=== PATIENT | female | born 1995 | race Two or more races ===

== ENCOUNTER 2019-04-08 19:25 | Emergency (ER) | payer MEDICAID, OTHER ==
[~2019-04-08] VITALS: Ht 152.4 cm; Wt 49.9 kg
[2019-04-08 19:35] VITALS: BP 110/65
== END 2019-04-08 23:19 | disposition home or self-care (01) ==
LOC: ER 19:25
DX: M62.838 Other muscle spasm (principal); M54.2 Cervicalgia; R07.81 Pleurodynia; R51 Headache; M25.512 Pain in left shoulder; M25.511 Pain in right shoulder; Z32.02 Encounter for pregnancy test, result negative; V49.49XA Driver injured in collision with other motor vehicles in traffic accident, initial encounter; Y93.89 Activity, other specified; Y92.89 Other specified places as the place of occurrence of the external cause; Y99.8 Other external cause status
CPT/HCPCS: 81025

== ENCOUNTER → 2019-06-22 | Emergency (ER) | payer SELFPAY ==
[~2019-06-22] VITALS: Ht 152.4 cm; Wt 47.6 kg
[2019-06-22 18:24] VITALS: BP 92/57
[2019-06-22 19:38] LABS: Urine Bacteria FEW /hpf (None Seen); Urine Blood 1+ /uL (Negative); Urine Mucus FEW (None Seen); Urine Specific Gravity 1.019 (1.001-1.035); Urine WBC 105 /hpf (0 - 5); Urine WBC Clumps PRESENT /hpf (None Seen)
== END | disposition left against medical advice (07) ==
LOC: ER 17:48
DX: R10.9 Unspecified abdominal pain (principal); Z53.21 Procedure and treatment not carried out due to patient leaving prior to being seen by health care provider
CPT/HCPCS: 81001; 81025

== ENCOUNTER 2025-04-01 10:03 | Emergency (ER) | payer MEDICAID ==
[~2025-04-01] VITALS: Ht 152.4 cm; Wt 57.0 kg
--- NOTE | 2025-04-01 10:41 | DVH ---
CLINICAL INFORMATION: Persistent cough. Shortness of breath. TECHNIQUE: Frontal and lateral chest radiographs were obtained. COMPARISON: None FINDINGS: Lungs: Bilateral perihilar interstitial opacities with mild perihilar peribronchial cuffing. No focal consolidation. Cardiac: Heart size is within normal limits. Pulmonary vasculature: Unremarkable Mediastinum/mindy: Within normal limits. Bones: No evidence of acute osseous abnormality. Other: Mild pectus excavatum deformity. IMPRESSION: Perihilar interstitial opacities with mild Perihilar peribronchial cuffing. Findings may be seen wit h viral infection / bronchiolitis in the appropriate clinical setting. No focal consolidation.
[2025-04-01 11:33] VITALS: BP 133/74; PULSE 112; RESP 24; TEMP 97.8; O2SAT 94
--- NOTE | 2025-04-01 11:58 | ED.PDOC ---
SOB-HPI HPI Comments A 29 year old female presents to the ED c/o cough onset 3 weeks with associated SOB. Patient states that she has been having a persistent cough for the past 3 weeks with no relief of symptoms. Patient mentions that she has been seen at urgent care twice before in the past week and was prescribed Azithromycin and Promethazine, which she states has not helped. Patient is able to speak in full, complete sentences. Denies fever, chest pain, abdominal pain, nausea, vomiting, diarrhea, headache, dizziness, vision changes, or numbness/tingling of extremities. No other symptoms or modifying factors reported at this time. Patient is alert and oriented x4 and has a stable gait. Chief Complaint: Flu like Time Seen by MD: 11:46 Primary Care Provider: 97.8 Reviewed notes: Nurses Notes, Medications, Allergies Information Source: Patient Mode of Arrival: Ambulatory Severity: Moderate Timing: Weeks Duration: Since onset Context: At Rest PE Risk Factors: None History of: None Prehospital treatment: None Associated Signs and Symptoms: Cough If cough with SOB: Non-Productive Past Medical History PAST MEDICAL HISTORY: Denies Surgical History: Denies all surgeries PEANUT VENDOR History: No Pertinent PEANUT VENDOR History Family History Family History: Unknown Social History Smoker: Non-Smoker Alcohol: Denies ETOH Use Drugs: Denies Drug Use Lives In: Home Constitutional: denies: chills, diaphoresis, fatigue, fever, malaise, sweats, weakness, others EENTM: denies: blurred vision, double vision, ear bleeding, ear discharge, ear drainage, ear pain, ear ringing, eye pain, eye redness, hearing loss, mouth pain, mouth swelling, nasal discharge, nose bleeding, nose congestion, nose pain, photophobia, tearing, throat pain, throat swelling, voice changes, others Respiratory: reports: cough, SOB at rest; denies: hemoptysis, orthopnea, shortness of breath, SOB with excertion, stridor, wheezing, others Cardiovascular: denies: chest pain, dizzy spells, diaphoresis, Dyspnea on exe rtion, edema, irregular heart beat, left arm pain, lightheadedness, palpitations, PND, syncope, others Gastrointestinal: denies: abdomen distended, abdominal pain, blood streaked bowels, constipated, diarrhea, dysphagia, difficulty swallowing, hematemesis, melena, nausea, poor appetite, poor fluid intake, rectal bleeding, rectal pain, vomiting, others Genitourinary: denies: abnormal vagina bleeding, burning, dyspareunia, dysuria, flank pain, frequency, hematuria, incontinence, pain, , vagina discharge, urgency, others Neurological: denies: dizziness, fainting, headache, left sided numbness, left sided weakness, numbness, paresthesia, pre-existing deficit, right sided numbness, right sided weakness, seizure, speech problems, tingling, tremors, weakness, others Musculoskeletal: denies: back pain, gout, joint pain, joint swelling, muscle pain, muscle stiffness, neck pain, others Integumetry: denies: bruises, change in color, change in hair/nails, dryness, laceration, lesions, lumps, rash, wounds, others Allergic/Immunocompromised: denies: Difficulty Healing, Frequent Infections, Hives, Itching, others Hematologic/Lymphatic: denies: anemia, blood clots, easy bleeding, easy bruising, swollen glands, others Endocrine: denies: excessive hunger, excessive sweating, excessive thirst, excessive urination, flushing, intolerance to cold, intolerance to heat, unexplained weight gain, unexplained weight loss, others Psychiatric: denies: anxiety, bipolar disorder, depression, hopeless, panic disorder, schizophrenia, sleepless, suicidal, others All Other Systems: Reviewed and Negative Physical Exam General Appearance: No Apparent Distress, Normal HEENT: Normal ENT Inspection, Pharynx Normal, TMs Normal Neck: Full Range of Motion, Non-Tender, Normal, Normal Inspection Respiratory: Chest Non-Tender, Lungs Clear, No Accessory Muscle Use, No Respiratory Distress, Normal Breath Sounds Cardiovascular: No Edema, No JVD, No Murmur, No Gallop, Normal Peripheral Pulses, Regular Rate/Rhythm Breast Exam: Deferred Gastrointestinal: No Organomegaly, Non Tender, No Pulsatile Mass, Normal Bowel Sounds, Soft Genitalia: Deferred Pelvic: Deferred Rectal: Deferred Extremities: No calf tenderness, Normal capillary refill, Normal inspection, Normal range of motion, Non-tender, No pedal edema Musculoskeletal : Apperance: Normal Neurologic: Alert, technology strategist II-XII nml as Tested, No Motor Deficits, Normal Affect, Normal Mood, No Sensory Deficits Cerebellar Function: Normal Reflexes: Normal Skin: Dry, Normal Color, Warm Lymphatic: No Adenopathy Was a procedure done? Was a procedure done?: No Differential Dx Differential Diagnosis: Bronchitis, URI X-Ray, Labs, Meds, VS Vital Signs Date Time Temp Pulse Resp B/P (MAP) Pulse Ox O2 Delivery O2 Flow Rate FiO2 04/01/25 11:33 112 24 94 Room Air 04/01/25 11:33 97.8 112 24 133/74 (93) 94 97.8 04/01/25 10:30 97.8 24 133/74 (93) 94 97.8 04/01/25 10:09 97.8 112 24 133/74 (93) 94 97.8 PATIENT: YARELI DILL DACCT: [id number]: [id number] : 1995 LOC: ER ROOM / BED: / AGE / SEX: 29 / F ADM STATUS: REG ER SERVICE 1010 ORDERING PHYSICIAN: IDRIS TORRES NP PROCEDURE(s): CXR2 - CHEST TWO VIEWS ROUTINE REASON: PERSISTANT COUGH SOB ORDER NUMBER(s): [id number], ACCESSION NUMBER(s): [id number] CLINICAL INFORMATION: Persistent cough. Shortness of breath. TECHNIQUE: Frontal and lateral chest radiographs were obtained. COMPARISON: None FINDINGS: Lungs: Bilateral perihilar interstitial opacities with mild perihilar peribronchial cuffing. No focal consolidation. Cardiac: Heart size is within normal limits. Pulmonary vasculature: Unremarkable Mediastinum/mindy: Within normal limits. Bones: No evidence of acute osseous abnormality. Other: Mild pectus excavatum deformity. IMPRESSION: Perihilar interstitial opacities with mild Perihilar peribronchial cuffing. Findings may be seen with viral infection / bronchiolitis in the appropriate clinical setting. No focal consolidation. ATED BY: CLAUDE SALAS DO DICTATED DATE/TIME: 04/01/25 103 SIGNED BY: CLAUDE SALAS DO SIGNED DATE/TIME: 04/01/25 103 CC: X-Ray, Labs, Meds, VS Comment History and physical consistent of URI Take medication as prescribed Discussed that cough can linger up to 6 weeks after viral URI ED precautions if cough does not alleviate or if cough worsens Supportive care and return precautions discussed Counseled viral infection and explained that antibiotics would not be helpful in resolving the illness sooner. Recommended vitamin C, rest, handwashing, and symptomatic care. Expect 2-week course with possibly of cough lingering up to 6 weeks. Nonpharmacological remedies for fluids has been recommended as well Patient is stable for discharge at this time. External notes reviewed. Test results and diagnostic imaging interpreted. All diagnostic findings, discharge care, education and instructions provided Follow-up with PCP in 2 to 3 days Patient verbalized understanding and agreed to treatment plan Vital signs stable, afebrile, no acute distress noted Patient ambulatory with strong steady gait Advised to return precautions for any new or worsening symptoms, return to ER immediately for re-evaluation Patient is aware that the purpose of this visit was for an acute medical emergency requiring emergent stabilization. Chronic conditions, including malignancies have not been ruled out. Patient is instructed to follow up with PCP as directed and discharge instructions for continued care and workup. If unable to arrange follow-up, patient is to return to the emergency department for reassessment. Patient (parent or legal guardian if applicable) was given verbal and written discharge instructions and acknowledges understanding. Time of 1ST Reevaluation: 12:16 Reevaluation 1ST: Unchanged Patient Education/Counseling: Diagnosis, Treatment, Need For Follow Up Family Education/Counseling: No Family Present Departure 1 Departure Time of Disposition: 12:00 Impression: Primary Impression: Viral syndrome Disposition: 01 HOME / SELF CARE / HOMELESS Condition: Fair e-Prescriptions Guaifenesin (Guaifenesin) 100 Mg/5 Ml Trudy 10 MG PO Q4HP PRN for 10 Days, #400 ML 0 Refills Prov: IDRIS TORRES CONTROL SYSTEM COMPUTER SCIENTIST 04/01/25 Benzonatate (Benzonatate) 100 Mg Cap 1 CAP PO TID for 10 Days, #30 CAP 0 Refills Prov: IDRIS TORRES NP 04/01/25 Prednisone (Prednisone) 20 Mg Tab 40 MG PO DAILY for 5 Days, #20 TAB 0 Refills Prov: IDRIS TORRES CONTROL SYSTEM COMPUTER SCIENTIST 04/01/25 Critical Care Note Critical Care Time?: No Stability Stability form required: No Heart Score Heart Score: Heart Score Response (Comments) Value History N/A 0 EKG N/A 0 Age N/A 0 Risk Factors N/A 0 Troponin N/A 0 Total 0 I personally scribed for IDRIS TORRES NP ([email or web address]) on 04/01/25 at 11:58. Electronically submitted by Luke Shannon ([email or web address]). IDRIS TORRES NP April 01, 2025 11:58
[2025-04-01] MEDS ORDERED: GUAI-41 PO (12:03)
[2025-04-01] MEDS ORDERED: PRED20TA2 PO (12:03)
[2025-04-01] MEDS ORDERED: BENZ100C97 PO (12:03)
== END 2025-04-01 12:10 | disposition home or self-care (01) ==
LOC: ER 10:03
DX: B34.9 Viral infection, unspecified (principal)
CPT/HCPCS: 71046